=== PATIENT | female | born 1995 | race Caucasian/White ===

== ENCOUNTER → 2020-02-29 | Outpatient (REF) | payer OTHER ==
[2020-02-29 13:22] LABS: HEMATOCRIT 44.6 % (36.0-47.0); HEMOGLOBIN 13.7 g/dl (12.0-15.5); MEAN CORPUSCULAR HEMOGLOBIN 26.3 pg (27.0-33.0); MEAN CORPUSCULAR HGB CONC 30.7 g/dl (32.0-36.5); MEAN CORPUSCULAR VOLUME 85.8 fl (80.0-96.0); PLATELET COUNT, AUTOMATED 329 10^3/uL (150-450); WHITE BLOOD COUNT 7.2 10^3/uL (4.0-10.0)
[2020-02-29 14:42] LABS: HEPATITIS B SURFACE ANTIGEN NEGATIVE (NEGATIVE); HIV 1&2 SCREEN CENTAUR NEGATIVE (NEGATIVE)
== END ==
LOC: M LAB REF 12:39
PROVIDERS: ATTEND Advanced Practice Midwife
DX: Z32.01 Encounter for pregnancy test, result positive (principal)

== ENCOUNTER → 2020-05-23 | Outpatient (CLI) | payer OTHER ==
--- NOTE | 2020-05-24 06:41 | REP ---
INDICATION: ANATOMY COMPARISON: None. TECHNIQUE: Transabdominal obstetrical ultrasound with color Doppler evaluation. FINDINGS: Examination demonstrates a single live intrauterine in cephalic presentation. motion is identified by technologist. Placenta is noted anterior and grade 1 without evidence for placenta previa or abruption. Amniotic fluid volume is normal. Cervix measures 4.8 cm in length and appears closed.. Gestational age by LMP 18 weeks 3 days with MICAH 10/21/2020. Gestational age by current measurements 19 weeks 6 days with MICAH 10/11/2020. FHR equals 147 beats per minute. BPD: 4.7 cm 20 weeks 0 days HC: 17.2 cm 19 weeks 5 days AC: 14.2 cm 19 weeks 4 days FL: 3.1 cm 19 weeks 5 days HL: 3.1 cm 20 weeks 0 days HC/AC: 1.21 Estimated weight 303 grams (35thpercentile based on age by current measurements). Anatomical assessment demonstrates normal structures including cranium, cavum, cerebellum/posterior fossa, facial features, lungs, four-chamber heart/ventricular outflow tracts, diaphragm, stomach, cord insertion/three-vessel cord, kidneys/bladder, spine, and extremities. Small bilateral choroid plexus cysts noted. IMPRESSION: 1. Single live intrauterine in cephalic presentation demonstrating appropriate estimated weight as compared to current measurements. 2. Choroid plexus cysts noted. Remainder of the anatomical assessment is complete and normal. <Electronically signed by Javier Cervantes > 05/24/20 [id number]
== END ==
LOC: M RAD 14:33
PROVIDERS: ATTEND Obstetrics & Gynecology
DX: Z34.82 Encounter for supervision of other normal pregnancy, second trimester (principal); O35.0XX0 Maternal care for (suspected) central nervous system malformation in fetus, not applicable or unspecified; Z3A.19 19 weeks gestation of pregnancy

== ENCOUNTER 2020-06-18 13:26 | Emergency (ER) | payer OTHER ==
[~2020-06-18] VITALS: Ht 170.2 cm; Wt 119.6 kg
[2020-06-18] MEDS ORDERED: LIDOCAINE 2% MDV 20ML VIAL SC ONE (13:55)
[2020-06-18 14:43] VITALS: BP 126/72
== END 2020-06-18 15:05 | disposition home or self-care (01) ==
LOC: M ED 13:26
DX: S81.811A Laceration without foreign body, right lower leg, initial encounter (principal); W26.8XXA Contact with other sharp object(s), not elsewhere classified, initial encounter; Y92.018 Other place in single-family (private) house as the place of occurrence of the external cause

== ENCOUNTER → 2020-06-20 | Outpatient (CLI) | payer OTHER ==
--- NOTE | 2020-06-20 10:25 | REP ---
INDICATION: FOLLOW UP ANATOMY. COMPARISON: 05/23/2020. TECHNIQUE: Real-time sonographic evaluation of the gravid uterus performed. FINDINGS: Estimated gestational age is22 weeks 3 days, EDC 10/21/2020. Today's measurements indicate appropriate growth. Presentation: Transverse Placenta anterior, grade 0, without evidence of placenta previa. heart rate is recorded at 158 beats per minute. Amniotic fluid is subjectively normal. Closed cervical length is measured at 3.7 cm. Biometry chart: BPD: 58 mm, 23 weeks 6 days, 89th percentile. HC: 214 mm, 23 weeks 3 days, 83rd percentile AC: 187 mm, 23 weeks 3 days, 72nd percentile Femur length: 40 mm, 23 weeks 0 days, 66th percentile HC to AC ratio: 1.15, normal range 1.04-1.23. Estimated weight: 582g, 85th percentile. The previously noted choroid plexus cysts have resolved. IMPRESSION: Viable single intrauterine gestation as above. <Electronically signed by Buster Owens > 06/20/20 1021
== END ==
LOC: M RAD 08:30
PROVIDERS: ATTEND Advanced Practice Midwife
DX: Z34.82 Encounter for supervision of other normal pregnancy, second trimester (principal)

== ENCOUNTER 2020-06-25 15:17 | Emergency (ER) | payer OTHER ==
[~2020-06-25] VITALS: Ht 170.2 cm; Wt 119.4 kg
[2020-06-25 15:17] VITALS: BP 133/67
[2020-06-25] MEDS ORDERED: MULTTAB20 PO (15:38)
== END 2020-06-25 16:26 | disposition home or self-care (01) ==
LOC: M ED 15:17
DX: Z48.02 Encounter for removal of sutures (principal); Z91.040 Latex allergy status

== ENCOUNTER → 2020-07-26 | Outpatient (CLI) | payer OTHER ==
[~2020-07-26] MED LIST: MULTTAB20 PO
[2020-07-26 11:51] LABS: HEMATOCRIT 36.8 % (36.0-47.0); MEAN CORPUSCULAR HEMOGLOBIN 28.4 pg (27.0-33.0); MEAN CORPUSCULAR HGB CONC 32.6 g/dl (32.0-36.5); MEAN CORPUSCULAR VOLUME 87.2 fl (80.0-96.0); PLATELET COUNT, AUTOMATED 280 10^3/uL (150-450); RED BLOOD COUNT 4.22 10^6/uL (4.00-5.40)
[2020-07-27 07:30] LABS: WHITE BLOOD COUNT 10.2 10^3/uL (4.0-10.0)
== END ==
LOC: M LAB 09:11
PROVIDERS: ATTEND Obstetrics & Gynecology
DX: Z36.89 Encounter for other specified antenatal screening (principal)

== ENCOUNTER → 2020-09-20 | Outpatient (CLI) | payer OTHER ==
--- NOTE | 2020-09-21 05:16 | REP ---
INDICATION: UTERINE SIZE-DATE DISCREPANCY, THIRD TRIMESTER COMPARISON: 06/20/2020 TECHNIQUE: Transabdominal obstetrical ultrasound with color Doppler evaluation. FINDINGS: Examination demonstrates a single live intrauterine in cephalic presentation. motion is identified by technologist. Placenta is noted anterior and grade 3 without evidence for placenta previa or abruption. Amniotic fluid volume is normal. Cervix measures 3.3 cm in length and appears closed.. Selected gestational age: 35 weeks 4 days with MICAH 10/21/2020. Gestational age by current measurements 36 weeks 6 days with MICAH 10/12/2020. FHR equals 150 beats per minute. BPD: 9.1 cm at 37 weeks 0 days HC: 33.8 cm at 30 weeks 6 days AC: 32.3 cm at 36 weeks 1 day FL: 7.0 cm at 36 weeks 1 day HL: 6.2 cm at 35 weeks 6 days HC/AC: 1.05 Estimated weight 2963 grams (75thpercentile). UNIQUE: 11.3 cm Umbilical artery SD ratio: 2.28 (1.66-3.54) IMPRESSION: Single live intrauterine in cephalic presentation demonstrating appropriate estimated weight and amniotic fluid volume. <Electronically signed by Javier Cervantes > 09/21/20 0530
== END ==
LOC: M RAD 16:05
PROVIDERS: ATTEND Obstetrics & Gynecology
DX: O26.843 Uterine size-date discrepancy, third trimester (principal); Z3A.36 36 weeks gestation of pregnancy

== ENCOUNTER → 2020-09-27 | Outpatient (REF) | payer OTHER | LOC: M LAB REF 12:21 | PROVIDERS: ATTEND Advanced Practice Midwife | DX: Z34.83 Encounter for supervision of other normal pregnancy, third trimester (principal) ==

== ENCOUNTER → 2020-10-06 | Outpatient (CLI) | payer OTHER | LOC: M LABSMTC 09:43 | PROVIDERS: ATTEND Anesthesiology | DX: Z01.812 Encounter for preprocedural laboratory examination (principal); Z20.822 Contact with and (suspected) exposure to COVID-19 ==

== ENCOUNTER 2020-10-11 05:24 | Inpatient (IN) | payer OTHER ==
[~2020-10-11] VITALS: Ht 170.2 cm; Wt 121.5 kg
[2020-10-11] VITALS (7 sets, daily range): BP systolic 123–144; BP diastolic 56–84
[2020-10-11] MEDS ORDERED: LACTATED RINGER'S 1000 ML IV STA (05:33)
[2020-10-11] MEDS ORDERED: LR 1,000 ML IV SCH ×2 (05:35→09:15)
[2020-10-11] MEDS ORDERED: BICITRA 30ML SOLN UDC PO ONE (05:35)
[2020-10-11] MEDS ORDERED: ceFAZolin SOD 2 GM in IV 1 EA IV ONE (05:35)
[2020-10-11 06:41] LABS: HEMOGLOBIN 12.3 g/dl (12.0-15.5); MEAN CORPUSCULAR HEMOGLOBIN 28.1 pg (27.0-33.0); MEAN CORPUSCULAR HGB CONC 33.2 g/dl (32.0-36.5); MEAN CORPUSCULAR VOLUME 84.5 fl (80.0-96.0); PLATELET COUNT, AUTOMATED 278 10^3/uL (150-450); RED BLOOD COUNT 4.38 10^6/uL (4.00-5.40); WHITE BLOOD COUNT 11.1 10^3/uL (4.0-10.0)
[2020-10-11] MEDS ORDERED: KETOROLAC 60MG 2ML VIAL As Ordered ONE (07:21)
[2020-10-11] MEDS ORDERED: ONDANSETRON 4MG/2ML VIAL As Ordered ONE (07:21)
[2020-10-11] MEDS ORDERED: MORPHINE PRES-FREE INJ 10 MG/10 ML VIAL (J2274) As Ordered ONE (07:23)
[2020-10-11] MEDS ORDERED: OXYTOCIN INJ 10 UNITS/ML VIAL (J2590) As Ordered ONE (07:23)
[2020-10-11] MEDS ORDERED: NALBUPHINE HCL 10 MG/ML AMP (J2300) IV PRN (07:44)
[2020-10-11] MEDS ORDERED: METOCLOPRAMIDE INJ 10MG/2ML VIAL (J2765 PER 1) IV PRN ×2 (07:44→09:15)
[2020-10-11] MEDS ORDERED: diphenhydrAMINE 50MG/ML VIAL (J1200) IV PRN (07:44)
[2020-10-11] MEDS ORDERED: ONDANSETRON 4MG/2ML VIAL IV PRN ×2 (07:44→09:15)
[2020-10-11] MEDS ORDERED: NALOXONE INJ 0.4MG/1ML VIAL (J2310 PER 1MG) IV PRN ×2 (07:44)
[2020-10-11] MEDS ORDERED: ePHEDrine SULFATE 25 MG/5 ML(5MG/ML) SYRINGE As Ordered ONE (08:09)
[2020-10-11 08:31] LABS: CORD GAS ABE V -5.8; CORD GAS HCO3 A 23.7 MEQ/L; CORD GAS HCO3 V 20.6 MEQ/L; CORD GAS O2 SAT A 21.7 %; CORD GAS O2 SAT V 43.8 %; CORD GAS PCO2 A 58.1 mmHg; CORD GAS PCO2 V 43.6 mmHg; CORD GAS PH A 7.229 UNITS; CORD GAS PH V 7.293 UNITS; CORD GAS PO2 A 13.4 mmHg; CORD GAS PO2 V 19.9 mmHg; CORD GAS SBC A 18.5 MEQ/L; CORD GAS SBC V 18.5 MEQ/L; CORD GAS TCO2 A 25.5 MEQ/L
[2020-10-11] MEDS ORDERED: RHOGAM 300 MCG (1500 IU) INJ (J2790) IM SCH (08:40)
[2020-10-11] MEDS ORDERED: SIMETHICONE 80MG CHEW TAB PO PRN (08:40)
[2020-10-11] MEDS ORDERED: OXYTOCIN DRIP 30 UNITS in IV 1 EA IV SCH (08:40)
[2020-10-11] MEDS ORDERED: MOM 30ML SUSPENSION UDC PO PRN (08:40)
[2020-10-11] MEDS ORDERED: MEASLES,MUMPS,RUBELLA VACCINE INJ (MMR-II) (90707) SC SCH (08:40)
[2020-10-11] MEDS: DOCUSATE SODIUM 100MG CAPSULE PO SCH ×2 (09:00→20:18)
[2020-10-11] MEDS ORDERED: PRENATAL VITAMINS CHEWABLE TABLET PO SCH (09:00)
[2020-10-11] MEDS: PRENATAL VITAMINS CHEWABLE TABLET PO SCH (09:00)
[2020-10-11] MEDS ORDERED: fentaNYL 100 MCG/2 ML INJECTION (J3010) IV PRN (09:15)
[2020-10-11] MEDS ORDERED: PERCOCET 5MG/325MG TAB PO PRN (09:15)
--- NOTE | 2020-10-11 09:26 | RO ---
OPERATIVE NOTE DATE OF OPERATION: 10/11/2020 Rae is a 24-year-old female, 3, para 2-0-0-2, with a history of two prior sections, being admitted at 39 and 3/7 weeks gestation for repeat section. The patient also desires permanent tubal sterilization. PREOPERATIVE DIAGNOSIS: 1. Intrauterine at 39 weeks and 3/7 weeks gestation with a history of two prior sections. 2. Desires tubal ligation. POSTOPERATIVE DIAGNOSIS: 1. Intrauterine at 39 weeks and 3/7 weeks gestation with a history of two prior sections. 2. Desires tubal ligation. 3. Nuchal cord x1. PROCEDURE: Repeat section. Revision of old scar. Bilateral tubal ligation using a Filshie clip. SURGEON: Yosef Booker DO FERRYBOAT CAPTAIN: Rita Montgomery CNM ANESTHESIA: Spinal. COMPLICATIONS: None. ESTIMATED BLOOD LOSS: 600 mL FINDINGS: Live male infant in occiput transverse position, 9-9, weight 8 lb, 6 oz. Normal appearing tubes and ovaries. PROCEDURE: After obtaining informed consent, the patient was taken to the operating room. Once spinal anesthetic was found to be adequate, she was then draped and prepped in the usual sterile fashion in the supine position. At this point, an elliptical incision was made over the old scar with the help of Cyndi Montgomery. The old scar was removed. The incision was carried down to the fascia. The fascia was incised in a midline fashion and carried through laterally. The superior aspect of the fascia was then grasped with two Samuel clamps, tented off and dissected off the rectus muscles sharply. The inferior aspect was dissected off in a similar fashion. The rectus muscles were in midline fashion. The peritoneum was identified. The peritoneal cavity was entered bluntly. Superior and inferior dissection of the peritoneum was then done with good visualization of the bladder. At this point, a Mobius skin retractor was placed. A low transverse uterine incision was made. The was delivered in atraumatic fashion. The nuchal cord was reduced, cord doubly clamped and cut and the was handed over to awaiting warmer. Cord blood and cord gas were sent. The placenta was removed manually. The uterus was cleared of all clot and debris and the uterine incision was then repaired in two separate layers of 0 Vicryl sutures. At this point, attention was turned to the fallopian tube where the fimbriated ends were identified and a Filshie clip was then applied approximately 3-4 cm away from the cornual layer on each tube. Good hemostasis noted. The pelvis was copiously irrigated with normal saline and suctioned out. Attention turned to the peritoneum which was closed in a running fashion using 2-0 Vicryl. The fascia was closed in two separate segments of 0 Vicryl sutures and the skin was reapproximated in a subcuticular fashion using 3-0 Vicryl on a Gagandeep. Steri-Strips were placed. The patient tolerated the procedure well. She was then transferred to recovery room in stable condition. [facility]
[2020-10-11] MEDS ORDERED: OXYTOCIN 30 UNITS IN 0.9% NaCl 500ML IV BAG (J2590) As Ordered ONE (10:15)
[2020-10-11] MEDS: KETOROLAC 30 MG/ML 1ML VIAL IV SCH ×2 (16:40→20:18)
[2020-10-12 02:00] VITALS: BP 126/56
[2020-10-12] MEDS: KETOROLAC 30 MG/ML 1ML VIAL IV SCH (02:41)
[2020-10-12 06:00] VITALS: BP 128/58
[2020-10-12 06:55] LABS: HEMATOCRIT 31.1 % (36.0-47.0); MEAN CORPUSCULAR HEMOGLOBIN 27.6 pg (27.0-33.0); MEAN CORPUSCULAR HGB CONC 32.2 g/dl (32.0-36.5); MEAN CORPUSCULAR VOLUME 85.9 fl (80.0-96.0); PLATELET COUNT, AUTOMATED 222 10^3/uL (150-450); RED BLOOD COUNT 3.62 10^6/uL (4.00-5.40); WHITE BLOOD COUNT 11.1 10^3/uL (4.0-10.0)
[2020-10-12] MEDS: DOCUSATE SODIUM 100MG CAPSULE PO SCH ×2 (09:00→20:03)
[2020-10-12] MEDS: PRENATAL VITAMINS CHEWABLE TABLET PO SCH (09:00)
[2020-10-12 10:00] VITALS: BP 133/60
[2020-10-12] MEDS: IBUPROFEN 800 MG TAB PO SCH ×2 (10:00→17:52)
[2020-10-12 14:00] VITALS: BP 130/61
[2020-10-12] MEDS ORDERED: MIRALAX *UNIT DOSE* 17GM PACKET PO PRN (18:05)
[2020-10-12 18:46] VITALS: BP 148/90
[2020-10-12 22:00] VITALS: BP 131/70
[2020-10-13] MEDS: IBUPROFEN 800 MG TAB PO SCH ×2 (01:48→08:59)
[2020-10-13 02:32] VITALS: BP 128/74
[2020-10-13 06:30] VITALS: BP 132/76
[2020-10-13] MEDS: PRENATAL VITAMINS CHEWABLE TABLET PO SCH (09:00)
[2020-10-13] MEDS: DOCUSATE SODIUM 100MG CAPSULE PO SCH (09:00)
[2020-10-13] MEDS ORDERED: IBUP80TA PO (09:20)
[2020-10-13] MEDS ORDERED: MIRA1POW3 PO (09:20)
--- NOTE | 2020-10-13 09:26 | DS.PDOC ---
Discharge Summary General Date of Admission Oct 11, 2020 at 05:24 Date of Discharge 10/13/2020 Discharge Summary PROCEDURES PERFORMED DURING STAY: Repeat section with bilateral tubal ligation. ADMITTING DIAGNOSES: 1. Prior x 2 2. Satisfied parity. DISCHARGE DIAGNOSES: 1. Repeat with bilateral tubal ligation. COMPLICATIONS/CHIEF COMPLAINT: Term , Elective Repeat Section. HISTORY OF PRESENT ILLNESS: Ms Tilley was admitted 10/11/2020 for repeat with BTL by Dr Booker. HOSPITAL COURSE: Reports adequate pain management. Tolerating diet. Voiding and passing flatus DISCHARGE MEDICATIONS: Please see below. ALLERGIES: Please see below. PHYSICAL EXAMINATION ON DISCHARGE: VITAL SIGNS: Please see below. GENERAL: No distress HEENT: WNL NECK: Supple CARDIOVASCULAR EXAMINATION: HRR, normotensive RESPIRATORY EXAMINATION: Clear and unlabored ABDOMINAL EXAMINATION: Fundus firm. Dressing removed. Steri strips intact. Wound well approximated without evidence infection EXTREMITIES: Equal strength and motion SKIN: Intact NEUROLOGICAL EXAMINATION: Grossly intact PSYCHIATRIC EXAMINATION: Appropriate LABORATORY DATA: Please see below. PROGNOSIS: Good ACTIVITY: As tolerated DIET: As tolerated DISCHARGE PLAN: Home today with family DISPOSITION: Home DISCHARGE INSTRUCTIONS: 1. Routine care. Pelvic rest. Call with fever, nausea, vomiting, chills foul lochia or wound exudate. Continue vitamins. Rx sent for ibuprofen and miralax DISCHARGE CONDITION: Stable TIME SPENT ON DISCHARGE: Greater than 10 minutes. Vital Signs/I&Os Vital Signs Date Time Temp Pulse Resp B/P (MAP) Pulse Ox O2 Delivery O2 Flow Rate FiO2 10/13/20 06:30 97.4 69 17 132/76 (94) 10/12/20 22:00 98 Room Air I&O- Last 24 Hours up to 6 AM 10/13/20 06:00 Output Total 400 ml Balance -400 ml Discharge Medications Scheduled Ibuprofen (Ibuprofen) 800 Mg Tablet, 800 MG PO Q8H No122/Iron/Folic Acid ( Multi Tablet) 1 Each Tablet, 1 TAB PO DAILY, (Reported) Scheduled PRN Polyethylene Glycol 3350 (Miralax) 17 Gm Powd.pack, 1 PKT PO DAILYPRN PRN for CONSTIPATION Allergies Coded Allergies: latex (Verified Allergy, Unknown, rash, 09/27/20) Chloe Whipple CNM Oct 13, 2020 09:26
== END 2020-10-13 12:30 | disposition home or self-care (01) | DRG 540 ==
LOC: M LDI 05:24 → M OBS 12:15
PROVIDERS: ADMIT Obstetrics & Gynecology; ATTEND Obstetrics & Gynecology
PROC: 0UL70CZ Occlusion of Bilateral Fallopian Tubes with Extraluminal Device, Open Approach (ICD-10-PCS; 2020-10-11)
PROC: 10D00Z1 Extraction of Products of Conception, Low, Open Approach (ICD-10-PCS; principal; 2020-10-11 07:30)
DX: O34.211 Maternal care for low transverse scar from previous cesarean delivery (principal); Z3A.39 39 weeks gestation of pregnancy; Z37.0 Single live birth; O69.81X0 Labor and delivery complicated by cord around neck, without compression, not applicable or unspecified; Z30.2 Encounter for sterilization

== ENCOUNTER → 2023-03-07 | Outpatient (REF) | payer OTHER ==
[~2023-03-07] MED LIST changes: +IBUP80TA PO; +MIRA1POW3 PO
== END ==
LOC: M LAB REF 19:35
PROVIDERS: ATTEND Physician Assistant
DX: R30.0 Dysuria (principal)

== ENCOUNTER → 2023-06-23 | Outpatient (REF) | payer OTHER ==
[~2023-06-23] MED LIST changes: -MIRA1POW3 PO; +MIRA33506 PO
== END ==
LOC: M LAB REF 16:19
PROVIDERS: ATTEND Student in an Organized Health Care Education/Training Program
DX: R30.0 Dysuria (principal)

== ENCOUNTER → 2024-01-02 | Outpatient (REF) | payer OTHER | LOC: M WUC 19:15 | PROVIDERS: ATTEND Physician Assistant | DX: R30.0 Dysuria (principal) ==

== ENCOUNTER → 2025-03-19 | Outpatient (CLI) | payer OTHER ==
[2025-03-19 11:00] LABS: PLATELET COUNT, AUTOMATED 324 10^3/uL (150-450)
[2025-03-19 11:18] LABS: ESTIMATED AVERAGE GLUCOSE 103.0 MG/DL (60-110)
[2025-03-19 11:29] LABS: HCG, SERUM QUALITATIVE NEGATIVE (NEGATIVE)
[2025-03-19 11:31] LABS: ALT/SGPT 34 U/L (7.0-40); AST/SGOT 26 U/L (<34); CALCIUM LEVEL 9.4 MG/DL (8.5-10.1); CARBON DIOXIDE LEVEL 24 MMOL/L (20-31); CHLORIDE LEVEL 107 MMOL/L (98-107); CHOLESTEROL LEVEL 161 MG/DL (<200); CHOLESTEROL RISK RATIO 3.18 (<5); CREATININE FOR GFR 0.60 MG/DL (0.55-1.30); GLOMERULAR FILTRATION RATE > 90.0 (>60); GLUCOSE,RANDOM 85 MG/DL (LESS THAN 200); LDL CHOLESTEROL 101.6 MG/DL (<100); NON-HDL-C 110.4 MG/DL; POTASSIUM SERUM 4.2 MMOL/L (3.5-5.1); SODIUM LEVEL 142 MMOL/L (136-145); TRIGLYCERIDES LEVEL 44 MG/DL (<150)
[2025-03-19 11:32] LABS: LUTEINIZING HORMONE 2.8 mIU/ML; PROLACTIN 9.34 NG/ML
[2025-03-19 11:33] LABS: TESTOSTERONE 25 NG/DL (14-76)
[2025-03-22 00:28] LABS: DEHYDROEPIANDROSTERONE SULFATE 198.0 mcg/dL (14-349)
[2025-03-25 20:08] LABS: 17 HYDROXY PROGESTERONE 48.0 ng/dL
[2025-03-29 14:38] LABS: INSULIN FREE 2.8 uIU/mL (1.5-14.9); INSULIN TOTAL2 6.8 uIU/mL
== END ==
LOC: M LAB 09:43
PROVIDERS: ATTEND Physician Assistant
DX: L73.2 Hidradenitis suppurativa (principal)